=== PATIENT | male | born 1990 | race Caucasian/White ===

== ENCOUNTER → 2017-12-30 | Outpatient (CLI) | payer OTHER | LOC: FIMAGING 18:51 | PROVIDERS: ATTEND Physical Medicine & Rehabilitation | DX: R10.2 Pelvic and perineal pain (principal) ==

== ENCOUNTER → 2018-01-07 | Outpatient (CLI) | payer OTHER | LOC: CIMAGING 08:23 | PROVIDERS: ATTEND Physical Medicine & Rehabilitation | DX: K40.20 Bilateral inguinal hernia, without obstruction or gangrene, not specified as recurrent (principal); I86.1 Scrotal varices | CPT/HCPCS: 76705-PO; 76870-PO ==

== ENCOUNTER 2018-02-14 14:43 | Emergency (ER) | payer OTHER ==
[2018-02-14 14:53] VITALS: TEMP 97.9
--- NOTE | 2018-02-14 15:08 | EDPHY ---
H & P Time Seen by Provider: 02/14/18 15:06 HPI/ROS: Chief complaint. Testicular pain HPI. 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 He feels his symptoms have gradually been worsening the last several weeks. He had a recent ultrasound which showed normal testicles. MRI showed small easily reducible bilateral inguinal hernias. Patient tells me has usually right testicle pain but it is worse today. He is concerned about torsion. He has no swelling. No urinary symptoms or discharge. No recent injury. He awoke with worse symptoms this morning ROS Constitutional. no fever/chills, no weakness Eyes. no problems with vision ENT. no sore throat, no nasal drainage Cardiovascular. no chest pain Respiratory. no shortness of breath, no cough Abdominal. no abdominal pain, no nausea/vomiting, no diarrhea . No problems urinating. Right testicle pain MS. no calf pain/swelling, no neck/back pain, no joint pain Skin. no rash Lymph. no swollen glands Neuro. no headache, no dizziness, no difficulty walking or with speech Past Medical/Surgical History: Hip surgery Social History: Single, nonsmoker, no alcohol Smoking Status: Never smoked Physical Exam: General Appearance: Alert well-developed male moderate distress vital signs are stable Eyes: Pupils equal and round no pallor or injection. ENT, Mouth: Mucous membranes are moist. Respiratory: There are no retractions, lungs are clear to auscultation. Cardiovascular: Regular rate and rhythm. Gastrointestinal: Abdomen is soft and nontender, no masses, bowel sounds normal. Patient is circumcised. Both testicles appear to have normal anatomic position. Cremasteric reflexes present bilaterally. Tenderness to the epididymis on the right testicle. Neurological: Awake and alert, sensory and motor exams grossly normal. Skin: Warm and dry, no rashes. Musculoskeletal: Neck is supple nontender. Extremities symmetrical, full range of motion. Psychiatric: Patient is oriented X 3, there is no agitation. Constitutional: Initial Vital Signs Temperature (C) 36.6 C 02/14/18 14:49 Heart Rate 88 02/14/18 14:49 Respiratory Rate 20 02/14/18 14:49 Blood Pressure 148/99 H 02/14/18 14:49 O2 Sat (%) 94 02/14/18 14:49 O2 Delivery Mode Room Air Allergies/Adverse Reactions: Penicillins Allergy (Verified 02/14/18 14:54) Rash Home Medications: Medication Instructions Recorded oxyCODONE/APAP [Percocet 1 tab PO Q4-6PRN PRN #14 tab 02/14/18 5/325] Medical Decision Making - Diagnostics Imaging Results: Imaging Impressions Testicular Ultrasound 02/14/18 15:17 Impression: 1. Normal testicular ultrasound. 2. Mildly prominent vessels in the left hemiscrotum consistent with varicocele, unchanged from the December study. Results called and discussed with Celestino Rosenbaum MD on February 14, 2018 at 1724 hours. Testicular ultrasound reviewed by me and discussed with Dr. Blanton shows a left varicocele this mild. This is not the symptomatic side. Right testicle shows no mass, torsion. Has good blood flow. No obvious evidence of epididymitis. Unchanged from previous study about 1 month ago Procedures: Ibuprofen 600 mg ED Course/Re-evaluation: As part of the physical exam ice to the patient up and checked for hernias. He has 2 very small direct inguinal hernias that are easily reducible and present only with bearing down and cough. Re-evaluation at 4:30 p.m.. Pain is improved with ibuprofen but continues. He will be given Percocet and Zofran orally Re-evaluation 5:25 p.m.. Patient and I discussed imaging and lab results. We discussed treatment plan including criteria for return importance of follow-up further evaluation. He expresses understanding and agreement Differential Diagnosis: I considered testicular torsion, epididymitis, urinary tract infection, incarcerated hernia. - Data Points Laboratory Results: 02/14/18 15:50 Urine Color YELLOW Urine Appearance CLEAR Urine pH 7.5 (5.0-7.5) Ur Specific [place] <= 1.005 (1.002-1.030) Urine Protein NEGATIVE (NEGATIVE) Urine Ketones NEGATIVE (NEGATIVE) Urine Blood NEGATIVE (NEGATIVE) Urine Nitrate NEGATIVE (NEGATIVE) Urine Bilirubin NEGATIVE (NEGATIVE) Urine Urobilinogen 0.2 EU EU (0.2-1.0) Ur Leukocyte Esterase NEGATIVE (NEGATIVE) Urine RBC NONE SEEN /hpf /hpf (0-3) Urine WBC NONE SEEN /hpf /hpf (0-3) Ur Epithelial Cells TRACE /lpf /lpf (NONE-1+) Urine Glucose NEGATIVE (NEGATIVE) Medications Given: Discontinued Medications Ibuprofen (Motrin) 600 mg PO EDNOW ONE Stop: 02/14/18 15:18 Last Admin: 02/14/18 15:20 Dose: 600 mg Ondansetron HCl (Zofran Odt) 4 mg PO EDNOW ONE Stop: 02/14/18 16:34 Last Admin: 02/14/18 16:43 Dose: 4 mg Oxycodone/Acetaminophen (Percocet 5/325) 1 tab PO EDNOW ONE Stop: 02/14/18 16:34 Last Admin: 02/14/18 16:43 Dose: 1 tab Departure - Departure Disposition: Home, Routine, Self-Care Clinical Impression: Testicular pain, right Condition: Good Instructions: Testicle Pain (ED) Additional Instructions: Scrotal support. Ibuprofen 600 mg every 6 hr for discomfort. Percocet in addition if needed for discomfort. Return for worsening symptoms. I will give you the name of urologist and call on Friday morning to make the appointment for follow-up and further evaluation Referrals: NONE *PRIMARY CARE P,. [Primary Care Provider] - As per Instructions Alexys Belcher MD [Medical Doctor] - 2-3 days, call for appt. Prescriptions: oxyCODONE/APAP 5/325 [Percocet 5/325] 1 tab PO Q4-6PRN PRN #14 tab PRN Reason: Pain, Moderate
[2018-02-14] MEDS ORDERED: IBUPROFEN 600 MG TAB PO ONE (15:17)
[2018-02-14] MEDS ORDERED: ONDANSETRON DISINTEGRATING 4 MG TAB PO ONE (16:33)
[2018-02-14] MEDS ORDERED: OXYCODONE/APAP 5/325 TAB PO ONE (16:33)
[2018-02-14 17:46] VITALS: BP 101/69; PULSE 70; RESP 14; O2SAT 93
== END 2018-02-14 17:45 | disposition home or self-care (01) ==
LOC: CED 14:43
DX: N50.811 Right testicular pain (principal)
CPT/HCPCS: 76870-PO; 81003-PO; 81015-PO

== ENCOUNTER → 2018-02-17 | Outpatient (CLI) | payer OTHER | LOC: FIMAGING 18:58 | PROVIDERS: ATTEND Surgery | DX: M54.40 Lumbago with sciatica, unspecified side (principal); N50.82 Scrotal pain ==